=== PATIENT | female | born 1985 | race Caucasian/White ===

== ENCOUNTER → 2022-12-02 | Outpatient (CLI) | payer BC ==
--- NOTE | 2022-12-02 15:40 | P.SLEEP ---
History of Present Illness H&P Date: 12/02/22 This is a 37-year-old. Patient was referred to me for symptoms of chronic fatigue and some degree of sleepiness. Her current Philadelphia score is at 6. The patient reports some mild snoring. Denies having any witnessed apneas. No sleep fragmentation. During the day, she feels more fatigued and sleepy. She is going to bed around 10 PM and she is waking up at 8 AM in the morning. She does have occasional grinding of the teeth and she suffers from TMJ. The patient has also history of ADHD, and chronic anxiety. She has developed history of weight gain due to intake of Abilify. She claims that she has gained around 20 pounds over the past one year. No sleep paralysis. No hallucinations. No cataplexy. She denies falling asleep while driving her car. No vivid dreams. No restlessness and lower extremities. She has chronic pain and numbness in her legs along with chronic back pain. Review of Systems Constitutional: Reports daytime sleepiness, Reports fatigue, Reports weight gain Eyes: denies as per HPI, denies blurred vision, denies bulging eye, denies decreased vision, denies diplopia, denies discharge, denies dry eye, denies irritation, denies itching, denies pain, denies photophobia, denies loss of peripheral vision, denies loss of vision, denies tunnel vision/blind spots Ears: deny: decreased hearing, ear discharge, earache, tinnitus Ears, nose, mouth and throat: Reports as per HPI Breasts: absent: as per HPI, change in shape, gynecomastia, masses, nipple discharge, pain, skin changes, swelling Cardiovascular: Reports as per HPI Respiratory: Reports snoring Gastrointestinal: Reports as per HPI Genitourinary: Reports as per HPI Menstruation: Reports as per HPI Musculoskeletal: Reports low back pain Musculoskeletal: absent: ankle pain, ankle stiffness, ankle swelling Integumentary: Reports as per HPI Neurological: Reports numbness, Reports paresthesias Psychiatric: Reports as per HPI Endocrine: Reports as per HPI Hematologic/Lymphatic: Reports as per HPI Allergic/Immunologic: Reports as per HPI Past Medical History Additional Past Medical History / Comment(s): ADHD, chronic anxiety Past Surgical History: Hysterectomy Medications and Allergies Home Medications and Allergies Comment(s): Lamictal, atenolol, multivitamins Physical Exam BP is 139/89, pulse is 102, respirations 18, temperature 98.0, oxygen saturations 99% on room air oxygen. Her current Philadelphia score is at 16. BMI 39.2. The size of the neck is 14 inches. Weight is 237 pounds. Gen. appearance the patient is calm and comfortable, she is not in acute respiratory distress The patient appeared well nourished and normally developed. Vital signs as documented. Head exam is unremarkable. The patient is a Mallampati class IV with significant crowding of the posterior pharynx. No scleral icterus or corneal arcus noted. Neck is without jugular venous distension, thyromegaly, or carotid bruits. Carotid upstrokes are brisk bilaterally. Lungs are clear to auscultation and percussion. Cardiac exam reveals the PMI to be normally sized and situated. Rhythm is regular. First and second heart sounds normal. No murmurs, rubs or gallops. Abdominal exam reveals normal bowel sounds, no masses, no organomegaly and no aortic enlargement. Extremities are nonedematous and both femoral and pedal pulses are normal. Examination of the skin revealed no evidence of significant rashes, suspicious appearing nevi or other concerning lesions. Neurologically, the patient is awake and alert and the patient does not have any focal neurological deficit. Cranial nerves are essentially intact. Assessment and Plan Plan: Chronic fatigue with limited sleepiness, low clinical suspicion for obstructive sleep apnea, requesting a evaluation for ALBA Hypersomnia with an Philadelphia score of 16 Chronic anxiety Chronic numbness and pain in lower extremities History of ADHD Plan My overall clinical suspicion for a clinically significant obstructive sleep apnea or sleep breathing disorder is low. I will discuss with the patient. On going to order for this patient home sleep study to evaluate for obstructive sleep apnea. We'll make further recommendations based on those results. Her sleep hygiene measures of good. She'll maintain her regular sleep schedule. Follow-up with neurology regarding the pain and the numbness in lower extremities. Keep same medications. We'll continue to follow. Sleep Note - Sleep Note Sleep Note: Temperature: Pulse Rate: Respiratory Rate: Blood Pressure: SpO2: Height: Weight: BMI: Neck Circumference:
== END ==
LOC: SLEEP 13:12
PROVIDERS: ATTEND Internal Medicine Critical Care Medicine
DX: G47.33 Obstructive sleep apnea (adult) (pediatric) (principal); F41.9 Anxiety disorder, unspecified; F90.9 Attention-deficit hyperactivity disorder, unspecified type; R20.0 Anesthesia of skin; M79.604 Pain in right leg; M79.605 Pain in left leg
CPT/HCPCS: 99211

== ENCOUNTER → 2022-12-16 | Outpatient (CLI) | payer BC ==
[2022-12-17 18:41] LABS: Total Protein,CSF 49 mg/dL (12-60)
[2022-12-17 19:36] LABS: Appearance,CSF Clear; CSF Tube Number 4; CSF Tube Volume 3.2; Nucleated Cells, CSF 0 u/L (0-5); Red Blood Cell,CSF 0 u/L (0-10)
== END | disposition home or self-care (01) ==
LOC: LABWHC1 11:06
PROVIDERS: ATTEND Physician Assistant
DX: G35 Multiple sclerosis (principal)
CPT/HCPCS: 36415; 82040; 82042; 82784; 83873; 83916; 84157; 89050